=== PATIENT | male | born 1940 | race Caucasian/White ===

== ENCOUNTER 2019-04-09 13:45 | Inpatient (IN) | payer MEDICARE, OTHER ==
[2019-04-09] MEDS ORDERED: NACL 0.9% 3 ML SYG IV (14:00)
[2019-04-09] MEDS ORDERED: ONDANSETRON 4 MG INJ IV (14:00)
[2019-04-09 15:43] LABS: ADD MAN DIFF? NO
[2019-04-09 15:49] LABS: BASOPHILS % 0.7 % (0.0-2.0); EOSINOPHILS # 0.2 10^3/ul (0.0-0.5); EOSINOPHILS % 2.5 % (0.0-7.0); HEMATOCRIT 55.4 % (42.0-52.0); HEMOGLOBIN 18.4 g/dl (14.0-18.0); LYMPHOCYTES % 32.4 % (15.0-51.0); MEAN CORPUSCULAR HEMOGLOBIN 29.5 pg (29.0-33.0); MEAN CORPUSCULAR HGB CONC 33.2 g/dl (32.0-37.0); MEAN CORPUSCULAR VOLUME 88.9 fl (82.0-101.0); MEAN PLATELET VOLUME 10.5 fl (7.4-10.4); MONOCYTE # 0.7 10^3/ul (0.3-0.9); NEUTROPHIL # 3.2 10^3/ul (1.6-7.5); NEUTROPHILS % 53.2 % (39.0-77.0); PLATELET COUNT 186 10^3/UL (140-415); RED BLOOD COUNT 6.23 10^6/ul (4.70-6.10); RED CELL DISTRIBUTION WIDTH 13.3 % (11.5-14.5)
[2019-04-09] MEDS ORDERED: GLUCAGON 1 MG INJ IM (16:00)
[2019-04-09] MEDS ORDERED: GLUCOSE GEL 15 GRAM TUBE PO ×2 (16:00)
[2019-04-09] MEDS ORDERED: DEXTROSE 50% 50 ML SYRINGE IV ×2 (16:00)
[2019-04-09] MEDS ORDERED: GLUCOSE GEL 15 GRAM TUBE BUCCAL (16:00)
[2019-04-09] MEDS: SOD CHLORIDE 0.9% 1,000 ML IV (16:03)
[2019-04-09 16:07] LABS: URIC ACID 7.5 mg/dl (3.1-7.9)
[2019-04-09 16:08] LABS: INR 0.99; PROTIME 13.2 Sec (11.9-14.9)
[2019-04-09 16:09] LABS: ALANINE AMINOTRANSFERASE 28 IU/L (13-69); ALBUMIN/GLOBULIN RATIO 1.25; ALKALINE PHOSPHATASE 69 IU/L (42-121); ANION GAP 6 (5-13); ASPARTATE AMINO TRANSFERASE 33 IU/L (15-46); BLOOD UREA NITROGEN 16 mg/dl (7-20); CALCIUM 9.1 mg/dl (8.4-10.2); CARBON DIOXIDE 32 mmol/L (21-31); CHLORIDE 105 mmol/L (97-110); CREATININE 0.98 mg/dl (0.61-1.24); GLUCOSE 126 mg/dl (70-220); POTASSIUM 4.7 mmol/L (3.5-5.1); SODIUM 143 mmol/L (135-144); TOTAL PROTEIN 7.2 g/dl (6.1-8.1)
[2019-04-09 16:42] LABS: CARCINOEMBRYONIC ANTIGEN 19.7 ng/ml (0.0-5.0); FERRITIN 69.4 ng/ml (11.1-264.0)
[2019-04-09 16:59] LABS: PROSTATE SPECIFIC ANTIGEN 1.1 ng/ml (0.0-4.0)
[2019-04-09] MEDS: INSULIN ASPART [NOVOLOG] 3 ML PEN SC ×2 (17:43→20:40)
[2019-04-09] MEDS: METOPROLOL 25 MG TAB PO (20:40)
[2019-04-10] MEDS: ACCU-CHEK XX (01:54)
[2019-04-10] MEDS: SOD CHLORIDE 0.9% 1,000 ML IV ×2 (03:58→17:02)
[2019-04-10] MEDS: PANTOPRAZOLE (EC) 40 MG TAB PO (05:24)
[2019-04-10] MEDS: AMLODIPINE 5 MG TAB PO (08:08)
[2019-04-10] MEDS: METOPROLOL 25 MG TAB PO (08:08)
[2019-04-10] MEDS: ENOXAPARIN 40 MG/0.4 ML SYG SC (08:10)
[2019-04-10] MEDS: INSULIN ASPART [NOVOLOG] 3 ML PEN SC ×4 (08:12→21:00)
[2019-04-10 10:45] LABS: ADD MAN DIFF? NO
[2019-04-10 10:47] LABS: BASOPHILS % 0.4 % (0.0-2.0); EOSINOPHILS # 0.2 10^3/ul (0.0-0.5); EOSINOPHILS % 2.8 % (0.0-7.0); HEMATOCRIT 53.8 % (42.0-52.0); HEMOGLOBIN 17.5 g/dl (14.0-18.0); LYMPHOCYTES # 1.8 10^3/ul (0.8-2.9); MEAN CORPUSCULAR HEMOGLOBIN 29.1 pg (29.0-33.0); MEAN CORPUSCULAR HGB CONC 32.5 g/dl (32.0-37.0); MEAN CORPUSCULAR VOLUME 89.5 fl (82.0-101.0); MEAN PLATELET VOLUME 10.4 fl (7.4-10.4); MONOCYTE # 0.6 10^3/ul (0.3-0.9); MONOCYTES % 10.2 % (0.0-11.0); NEUTROPHIL # 3.1 10^3/ul (1.6-7.5); NEUTROPHILS % 55.2 % (39.0-77.0); PLATELET COUNT 186 10^3/UL (140-415); RED BLOOD COUNT 6.01 10^6/ul (4.70-6.10); RED CELL DISTRIBUTION WIDTH 13.2 % (11.5-14.5)
[2019-04-10 10:47] LABS: WHITE BLOOD COUNT 5.7 10^3/ul (4.8-10.8)
[2019-04-10 11:46] LABS: ALANINE AMINOTRANSFERASE 23 IU/L (13-69); ALBUMIN 3.6 g/dl (3.3-4.9); ALBUMIN/GLOBULIN RATIO 1.24; ALKALINE PHOSPHATASE 59 IU/L (42-121); ANION GAP 7 (5-13); ASPARTATE AMINO TRANSFERASE 32 IU/L (15-46); BLOOD UREA NITROGEN 17 mg/dl (7-20); CALCIUM 9.1 mg/dl (8.4-10.2); CARBON DIOXIDE 27 mmol/L (21-31); CHLORIDE 105 mmol/L (97-110); CREATININE 0.92 mg/dl (0.61-1.24); GLUCOSE 178 mg/dl (70-220); POTASSIUM 4.5 mmol/L (3.5-5.1); SODIUM 139 mmol/L (135-144); TOTAL PROTEIN 6.5 g/dl (6.1-8.1)
[2019-04-10 15:32] LABS: ALPHA FETOPROTEIN 2.76 IU/L (0.00-7.21)
[2019-04-10] MEDS: BISACODYL (EC) 5 MG TAB PO ×2 (17:01→21:04)
[2019-04-10] MEDS: PEG/ELECTROLYTES 4L BTL PO ×2 (17:03→21:06)
[2019-04-10] MEDS: METOPROLOL 50 MG TAB PO (21:03)
[2019-04-10] MEDS: HYDROCODONE/APAP (5/325) TAB PO (21:03)
[2019-04-11] MEDS: INSULIN ASPART [NOVOLOG] 3 ML PEN SC ×5 (00:39→20:21)
[2019-04-11] MEDS: ACCU-CHEK XX (01:24)
[2019-04-11 01:59] LABS: OCCULT BLOOD STOOL NEGATIVE (NEGATIVE)
[2019-04-11] MEDS: SOD CHLORIDE 0.9% 1,000 ML IV ×3 (04:00→20:26)
[2019-04-11 05:41] LABS: ADD MAN DIFF? NO
[2019-04-11 05:47] LABS: WHITE BLOOD COUNT 7.6 10^3/ul (4.8-10.8)
[2019-04-11 05:47] LABS: BASOPHILS % 0.3 % (0.0-2.0); EOSINOPHILS % 0.4 % (0.0-7.0); HEMATOCRIT 51.4 % (42.0-52.0); HEMOGLOBIN 16.8 g/dl (14.0-18.0); LYMPHOCYTES # 1.9 10^3/ul (0.8-2.9); LYMPHOCYTES % 24.6 % (15.0-51.0); MEAN CORPUSCULAR HEMOGLOBIN 29.1 pg (29.0-33.0); MEAN CORPUSCULAR HGB CONC 32.7 g/dl (32.0-37.0); MEAN CORPUSCULAR VOLUME 89.1 fl (82.0-101.0); MEAN PLATELET VOLUME 10.8 fl (7.4-10.4); MONOCYTE # 0.7 10^3/ul (0.3-0.9); MONOCYTES % 9.5 % (0.0-11.0); NEUTROPHIL # 4.9 10^3/ul (1.6-7.5); NEUTROPHILS % 64.9 % (39.0-77.0); PLATELET COUNT 179 10^3/UL (140-415); RED BLOOD COUNT 5.77 10^6/ul (4.70-6.10); RED CELL DISTRIBUTION WIDTH 13.1 % (11.5-14.5)
[2019-04-11] MEDS: PANTOPRAZOLE (EC) 40 MG TAB PO (05:59)
[2019-04-11 06:03] LABS: INR 0.96; PROTIME 12.9 Sec (11.9-14.9)
[2019-04-11 06:15] LABS: ALANINE AMINOTRANSFERASE 32 IU/L (13-69); ALKALINE PHOSPHATASE 55 IU/L (42-121); ANION GAP 9 (5-13); ASPARTATE AMINO TRANSFERASE 40 IU/L (15-46); BLOOD UREA NITROGEN 17 mg/dl (7-20); CALCIUM 8.5 mg/dl (8.4-10.2); CARBON DIOXIDE 26 mmol/L (21-31); CHLORIDE 107 mmol/L (97-110); CREATININE 0.85 mg/dl (0.61-1.24); GLUCOSE 131 mg/dl (70-220); POTASSIUM 4.1 mmol/L (3.5-5.1); SODIUM 142 mmol/L (135-144)
[2019-04-11 06:16] LABS: ALBUMIN 3.4 g/dl (3.3-4.9); ALBUMIN/GLOBULIN RATIO 1.17; BILIRUBIN,INDIRECT 0.8 mg/dl (0-1.1); BILIRUBIN,TOTAL 0.8 mg/dl (0.2-1.3); TOTAL PROTEIN 6.3 g/dl (6.1-8.1)
[2019-04-11] MEDS: AMLODIPINE 10 MG TAB PO (09:00)
[2019-04-11] MEDS: METOPROLOL 50 MG TAB PO (09:00)
[2019-04-11] MEDS: PROPOFOL 60 ML (12:26)
[2019-04-11] MEDS: LIDOCAINE 2% (SDV) 5 ML INJ (12:26)
[2019-04-11] MEDS ORDERED: ALBUTEROL 0.083% (NEB) 2.5 MG/3 ML AMP HHN (12:30)
[2019-04-11] MEDS ORDERED: ONDANSETRON 4 MG INJ IV (12:30)
[2019-04-11] MEDS ORDERED: EPHEDrine 25 MG/5 ML SYG IV (12:30)
[2019-04-11] MEDS ORDERED: LABETALOL HCL 20MG INJ IV (12:30)
[2019-04-11] MEDS ORDERED: DIPHENHYDRAMINE 50 MG INJ IV (12:30)
[2019-04-11] MEDS: LABETALOL HCL 20MG INJ (12:44)
[2019-04-11] MEDS: MEPERIDINE 25 MG INJ IV (13:11)
[2019-04-11] MEDS: hydrALAzine 20 MG INJ IV (13:11)
[2019-04-11] MEDS: HYDROCODONE/APAP (5/325) TAB PO (13:11)
[2019-04-11] MEDS: HYDROmorphONE 1 MG/ML SYG IV ×2 (14:57→20:23)
[2019-04-11] MEDS ORDERED: HYDROmorphONE 0.5 MG/0.5 ML SYG IV (15:00)
[2019-04-12] MEDS: ACCU-CHEK XX (01:36)
[2019-04-12] MEDS: PANTOPRAZOLE (EC) 40 MG TAB PO (05:25)
[2019-04-12] MEDS: INSULIN ASPART [NOVOLOG] 3 ML PEN SC ×4 (08:00→20:27)
[2019-04-12] MEDS: SOD CHLORIDE 0.9% 1,000 ML IV (08:56)
[2019-04-12] MEDS: AMLODIPINE 10 MG TAB PO (08:57)
[2019-04-12] MEDS: IOHEXOL 14.3 MG(I)/ML (ADULT) BTL PO ×2 (08:58→08:59)
[2019-04-12] MEDS: SOD CHLORIDE 0.9% 100 ML (08:59)
[2019-04-12] MEDS: IOHEXOL 300MG/ML 150 ML BTL (08:59)
[2019-04-12] MEDS: PEG/ELECTROLYTES 4L BTL PO (17:26)
[2019-04-13] MEDS: SOD CHLORIDE 0.9% 1,000 ML IV ×2 (00:38→12:30)
[2019-04-13] MEDS: INSULIN ASPART [NOVOLOG] 3 ML PEN SC ×6 (00:45→21:00)
[2019-04-13] MEDS: ACCU-CHEK XX (01:11)
[2019-04-13] MEDS: HYDROmorphONE 1 MG/ML SYG IV ×3 (02:30→11:13)
[2019-04-13] MEDS: PANTOPRAZOLE (EC) 40 MG TAB PO (05:19)
[2019-04-13] MEDS ORDERED: SUGAMMADEX SODIUM 200 MG/2 ML VIAL IV (07:00)
[2019-04-13] MEDS ORDERED: SUCCINYLCHOLINE CHLORIDE 100 MG/5 ML SYG IV ×2 (07:00→16:29)
[2019-04-13] MEDS: AMLODIPINE 10 MG TAB PO ×2 (09:00→11:09)
[2019-04-13 13:13] LABS: INR 1.01; PROTIME 13.4 Sec (11.9-14.9)
[2019-04-13 13:23] LABS: ANION GAP 9 (5-13); BLOOD UREA NITROGEN 14 mg/dl (7-20); CALCIUM 8.7 mg/dl (8.4-10.2); CARBON DIOXIDE 29 mmol/L (21-31); CHLORIDE 103 mmol/L (97-110); CREATININE 1.03 mg/dl (0.61-1.24); GLUCOSE 131 mg/dl (70-220); POTASSIUM 4.3 mmol/L (3.5-5.1); SODIUM 141 mmol/L (135-144)
[2019-04-13] MEDS ORDERED: EPINEPHRINE 4 MG in D5W 250 ML IV (14:00)
[2019-04-13] MEDS ORDERED: NORepinephrine 8MG/250 ML (PMX 250 ML IV ×2 (14:00)
[2019-04-13] MEDS ORDERED: NORepinephrine 8MG/250 ML (PMX 250 ML IVPB (14:30)
[2019-04-13] MEDS ORDERED: ROCURONIUM 50 MG INJ (16:29)
[2019-04-13] MEDS ORDERED: HYDROmorphONE 2 MG/ML SYG (16:29)
[2019-04-13] MEDS ORDERED: ETOMIDATE 20 MG INJ (16:29)
[2019-04-13] MEDS ORDERED: ONDANSETRON 4 MG INJ (16:29)
[2019-04-13] MEDS ORDERED: NITROGLYCERIN 50 MG in D5W 250 ML IV (17:00)
[2019-04-13] MEDS ORDERED: NALOXONE (0.4 MG/ML) INJ (17:45)
[2019-04-13 19:49] LABS: ANION GAP 7 (5-13); BLOOD UREA NITROGEN 14 mg/dl (7-20); CALCIUM 8.1 mg/dl (8.4-10.2); CARBON DIOXIDE 28 mmol/L (21-31); CHLORIDE 105 mmol/L (97-110); GLUCOSE 141 mg/dl (70-220); MAGNESIUM 1.9 mg/dl (1.7-2.5); POTASSIUM 4.2 mmol/L (3.5-5.1); SODIUM 140 mmol/L (135-144)
[2019-04-13 20:00] LABS: TROPONIN-I < 0.012 ng/ml (0.000-0.120)
[2019-04-13] MEDS: NITROGLYCERIN 50 MG/D5W (PMX) 250 ML IV (21:38)
[2019-04-14] MEDS: INSULIN ASPART [NOVOLOG] 3 ML PEN SC ×6 (01:00→21:00)
[2019-04-14] MEDS: SOD CHLORIDE 0.9% 1,000 ML IV (01:11)
[2019-04-14] MEDS: ACCU-CHEK XX (01:13)
[2019-04-14] MEDS: ACETAMINOPHEN 325 MG TAB PO (04:31)
[2019-04-14] MEDS: ZOLPIDEM 5 MG TAB PO (04:31)
[2019-04-14 04:56] LABS: ADD MAN DIFF? NO
[2019-04-14 05:00] LABS: BASOPHILS % 0.2 % (0.0-2.0); EOSINOPHILS # 0.1 10^3/ul (0.0-0.5); EOSINOPHILS % 1.4 % (0.0-7.0); HEMATOCRIT 46.7 % (42.0-52.0); HEMOGLOBIN 15.2 g/dl (14.0-18.0); LYMPHOCYTES # 1.3 10^3/ul (0.8-2.9); LYMPHOCYTES % 15.5 % (15.0-51.0); MEAN CORPUSCULAR HEMOGLOBIN 29.9 pg (29.0-33.0); MEAN CORPUSCULAR HGB CONC 32.5 g/dl (32.0-37.0); MEAN CORPUSCULAR VOLUME 91.9 fl (82.0-101.0); MONOCYTE # 0.8 10^3/ul (0.3-0.9); MONOCYTES % 10.4 % (0.0-11.0); NEUTROPHIL # 5.8 10^3/ul (1.6-7.5); NEUTROPHILS % 72.1 % (39.0-77.0); PLATELET COUNT 181 10^3/UL (140-415); RED BLOOD COUNT 5.08 10^6/ul (4.70-6.10); RED CELL DISTRIBUTION WIDTH 13.4 % (11.5-14.5)
[2019-04-14 05:23] LABS: MAGNESIUM 1.9 mg/dl (1.7-2.5)
[2019-04-14 05:23] LABS: PHOSPHORUS 4.3 mg/dl (2.5-4.9)
[2019-04-14 05:25] LABS: ANION GAP 6 (5-13); BLOOD UREA NITROGEN 13 mg/dl (7-20); CALCIUM 8.6 mg/dl (8.4-10.2); CARBON DIOXIDE 29 mmol/L (21-31); CHLORIDE 103 mmol/L (97-110); GLUCOSE 103 mg/dl (70-220); SODIUM 138 mmol/L (135-144)
[2019-04-14] MEDS: PANTOPRAZOLE (EC) 40 MG TAB PO (06:00)
[2019-04-14] MEDS: AMLODIPINE 10 MG TAB PO (09:20)
[2019-04-15] MEDS: ACCU-CHEK XX (02:00)
[2019-04-15] MEDS: INSULIN ASPART [NOVOLOG] 3 ML PEN SC ×6 (02:00→20:27)
[2019-04-15 06:00] LABS: ADD MAN DIFF? NO
[2019-04-15] MEDS: PANTOPRAZOLE (EC) 40 MG TAB PO (06:03)
[2019-04-15 06:06] LABS: BASOPHILS % 0.1 % (0.0-2.0); EOSINOPHILS # 0.1 10^3/ul (0.0-0.5); EOSINOPHILS % 1.7 % (0.0-7.0); HEMATOCRIT 48.1 % (42.0-52.0); HEMOGLOBIN 15.5 g/dl (14.0-18.0); LYMPHOCYTES # 1.5 10^3/ul (0.8-2.9); LYMPHOCYTES % 21.7 % (15.0-51.0); MEAN CORPUSCULAR HEMOGLOBIN 29.5 pg (29.0-33.0); MEAN CORPUSCULAR HGB CONC 32.2 g/dl (32.0-37.0); MEAN CORPUSCULAR VOLUME 91.4 fl (82.0-101.0); MEAN PLATELET VOLUME 10.8 fl (7.4-10.4); MONOCYTE # 0.7 10^3/ul (0.3-0.9); MONOCYTES % 9.4 % (0.0-11.0); NEUTROPHIL # 4.7 10^3/ul (1.6-7.5); NEUTROPHILS % 66.8 % (39.0-77.0); PLATELET COUNT 179 10^3/UL (140-415); RED BLOOD COUNT 5.26 10^6/ul (4.70-6.10); RED CELL DISTRIBUTION WIDTH 13.2 % (11.5-14.5)
[2019-04-15 06:26] LABS: PHOSPHORUS 3.4 mg/dl (2.5-4.9)
[2019-04-15 06:33] LABS: ANION GAP 8 (5-13); BLOOD UREA NITROGEN 16 mg/dl (7-20); CALCIUM 8.5 mg/dl (8.4-10.2); CARBON DIOXIDE 30 mmol/L (21-31); CHLORIDE 102 mmol/L (97-110); CREATININE 0.87 mg/dl (0.61-1.24); GLUCOSE 112 mg/dl (70-220); SODIUM 140 mmol/L (135-144)
[2019-04-15] MEDS: AMLODIPINE 10 MG TAB PO (08:35)
[2019-04-15] MEDS ORDERED: AMLODIPINE 5 MG TAB PO (13:30)
[2019-04-16] MEDS: INSULIN ASPART [NOVOLOG] 3 ML PEN SC ×6 (01:00→20:55)
[2019-04-16] MEDS: ACCU-CHEK XX (01:07)
[2019-04-16] MEDS: PANTOPRAZOLE (EC) 40 MG TAB PO (05:27)
[2019-04-16] MEDS: AMLODIPINE 10 MG TAB PO ×2 (09:00→17:38)
[2019-04-16] MEDS: SOD CHLORIDE 0.9% 1,000 ML IV (15:52)
[2019-04-16 19:20] LABS: TROPONIN-I < 0.012 ng/ml (0.000-0.120)
[2019-04-17] MEDS: SOD CHLORIDE 0.9% 1,000 ML IV ×2 (00:11→12:30)
[2019-04-17] MEDS: INSULIN ASPART [NOVOLOG] 3 ML PEN SC ×6 (01:00→20:32)
[2019-04-17] MEDS: ACCU-CHEK XX (02:00)
[2019-04-17] MEDS: PANTOPRAZOLE (EC) 40 MG TAB PO (05:26)
[2019-04-17 05:38] LABS: ADD MAN DIFF? NO
[2019-04-17 05:56] LABS: BASOPHILS % 0.5 % (0.0-2.0); EOSINOPHILS # 0.2 10^3/ul (0.0-0.5); EOSINOPHILS % 2.9 % (0.0-7.0); HEMATOCRIT 48.9 % (42.0-52.0); HEMOGLOBIN 16.2 g/dl (14.0-18.0); LYMPHOCYTES % 26.3 % (15.0-51.0); MEAN CORPUSCULAR HEMOGLOBIN 29.6 pg (29.0-33.0); MEAN CORPUSCULAR HGB CONC 33.1 g/dl (32.0-37.0); MEAN CORPUSCULAR VOLUME 89.2 fl (82.0-101.0); MEAN PLATELET VOLUME 10.9 fl (7.4-10.4); MONOCYTE # 0.9 10^3/ul (0.3-0.9); MONOCYTES % 11.7 % (0.0-11.0); NEUTROPHIL # 4.5 10^3/ul (1.6-7.5); NEUTROPHILS % 58.3 % (39.0-77.0); PLATELET COUNT 201 10^3/UL (140-415); RED BLOOD COUNT 5.48 10^6/ul (4.70-6.10); RED CELL DISTRIBUTION WIDTH 13.2 % (11.5-14.5)
[2019-04-17 05:56] LABS: WHITE BLOOD COUNT 7.7 10^3/ul (4.8-10.8)
[2019-04-17 06:19] LABS: PHOSPHORUS 3.7 mg/dl (2.5-4.9)
[2019-04-17 06:20] LABS: ALANINE AMINOTRANSFERASE 32 IU/L (13-69); ALBUMIN 3.6 g/dl (3.3-4.9); ALBUMIN/GLOBULIN RATIO 1.16; ALKALINE PHOSPHATASE 66 IU/L (42-121); ANION GAP 9 (5-13); ASPARTATE AMINO TRANSFERASE 31 IU/L (15-46); BILIRUBIN,INDIRECT 1.2 mg/dl (0-1.1); BILIRUBIN,TOTAL 1.2 mg/dl (0.2-1.3); BLOOD UREA NITROGEN 14 mg/dl (7-20); CALCIUM 8.8 mg/dl (8.4-10.2); CARBON DIOXIDE 29 mmol/L (21-31); CHLORIDE 103 mmol/L (97-110); CREATININE 0.82 mg/dl (0.61-1.24); GLUCOSE 90 mg/dl (70-220); POTASSIUM 3.9 mmol/L (3.5-5.1); SODIUM 141 mmol/L (135-144); TOTAL PROTEIN 6.7 g/dl (6.1-8.1)
[2019-04-17] MEDS ORDERED: DESFLURANE 15 MIN (07:00)
[2019-04-17] MEDS ORDERED: metroNIDAZOLE 500 MG/100 ML NS IVPB (07:00)
[2019-04-17] MEDS ORDERED: CEFAZOLIN 1 GM INJ (07:00)
[2019-04-17] MEDS: AMLODIPINE 10 MG TAB PO (08:25)
[2019-04-17] MEDS ORDERED: FENTAnyl 50 MCG/ML VIAL ×2 (10:05→16:18)
[2019-04-17] MEDS ORDERED: ETOMIDATE 20 MG INJ (10:12)
[2019-04-17] MEDS ORDERED: SUCCINYLCHOLINE CHLORIDE 100 MG/5 ML SYG IV (10:51)
[2019-04-17] MEDS ORDERED: LIDOCAINE 100 MG SYRINGE (10:51)
[2019-04-17] MEDS ORDERED: PROPOFOL 20 ML (10:51)
[2019-04-17] MEDS ORDERED: ROCURONIUM 50 MG INJ (10:51)
[2019-04-17] MEDS ORDERED: hydrALAzine 20 MG INJ ×2 (11:23→15:38)
[2019-04-17] MEDS: BUPIVACAINE 0.5%/EPI (SDV) 30 ML INJ (12:03)
[2019-04-17] MEDS: LIDOCAINE 1% (MPF) 30 ML INJ (12:04)
[2019-04-17] MEDS ORDERED: ROPIVACAINE 0.5 % 30 ML VIAL (15:04)
[2019-04-17] MEDS ORDERED: ROPIVACAINE 0.2% 20 ML VIAL (15:26)
[2019-04-17] MEDS ORDERED: HYDROCODONE/APAP (5/325) TAB PO (15:30)
[2019-04-17] MEDS ORDERED: SUGAMMADEX SODIUM 200 MG/2 ML VIAL IV ×2 (15:31→15:40)
[2019-04-17] MEDS ORDERED: nitroGLYCerin 50 MG INJ (15:34)
[2019-04-17] MEDS ORDERED: HYDROmorphONE 1 MG/5 ML IV SYRINGE IV ×2 (15:59→16:30)
[2019-04-17] MEDS: HYDROmorphONE 1 MG/5 ML IV SYRINGE IV ×2 (16:21→16:28)
[2019-04-17] MEDS ORDERED: FENTAnyl 50 MCG/ML VIAL IV (16:30)
[2019-04-17] MEDS ORDERED: LABETALOL HCL 20MG INJ IV (16:30)
[2019-04-17] MEDS ORDERED: ALBUTEROL 0.083% (NEB) 2.5 MG/3 ML AMP HHN (16:30)
[2019-04-17] MEDS ORDERED: DIPHENHYDRAMINE 50 MG INJ IV (16:30)
[2019-04-17] MEDS ORDERED: METOCLOPRAMIDE 10 MG INJ IV (16:30)
[2019-04-17] MEDS ORDERED: LEVALBUTEROL (NEB) 0.63 MG/3 ML AMP HHN (16:30)
[2019-04-17] MEDS: FENTAnyl 50 MCG/ML VIAL IV ×3 (16:33→18:03)
[2019-04-17] MEDS: ONDANSETRON 4 MG INJ IV (16:36)
[2019-04-17] MEDS: MEPERIDINE 25 MG INJ IV (16:36)
[2019-04-17] MEDS ORDERED: DILTIAZEM 25 MG INJ IV (17:00)
[2019-04-17] MEDS: hydrALAzine 20 MG INJ IV (18:21)
[2019-04-17] MEDS: morphine 2 MG INJ IV (20:28)
[2019-04-18] MEDS: morphine 2 MG INJ IV ×6 (00:29→21:52)
[2019-04-18] MEDS: INSULIN ASPART [NOVOLOG] 3 ML PEN SC ×6 (01:00→21:00)
[2019-04-18] MEDS: SOD CHLORIDE 0.9% 1,000 ML IV ×2 (01:00→07:31)
[2019-04-18] MEDS: ACCU-CHEK XX (02:00)
[2019-04-18] MEDS: PANTOPRAZOLE (EC) 40 MG TAB PO (05:28)
[2019-04-18 06:11] LABS: ADD MAN DIFF? NO
[2019-04-18 06:16] LABS: WHITE BLOOD COUNT 11.3 10^3/ul (4.8-10.8)
[2019-04-18 06:16] LABS: BASOPHILS % 0.3 % (0.0-2.0); HEMATOCRIT 50.6 % (42.0-52.0); HEMOGLOBIN 16.3 g/dl (14.0-18.0); LYMPHOCYTES % 9.1 % (15.0-51.0); MEAN CORPUSCULAR HEMOGLOBIN 29.4 pg (29.0-33.0); MEAN CORPUSCULAR HGB CONC 32.2 g/dl (32.0-37.0); MEAN CORPUSCULAR VOLUME 91.3 fl (82.0-101.0); MEAN PLATELET VOLUME 10.7 fl (7.4-10.4); MONOCYTES % 8.6 % (0.0-11.0); NEUTROPHIL # 9.2 10^3/ul (1.6-7.5); NEUTROPHILS % 81.5 % (39.0-77.0); PLATELET COUNT 209 10^3/UL (140-415); RED BLOOD COUNT 5.54 10^6/ul (4.70-6.10); RED CELL DISTRIBUTION WIDTH 13.5 % (11.5-14.5)
[2019-04-18 06:47] LABS: ALANINE AMINOTRANSFERASE 27 IU/L (13-69); ALBUMIN 3.5 g/dl (3.3-4.9); ALBUMIN/GLOBULIN RATIO 1.16; ALKALINE PHOSPHATASE 60 IU/L (42-121); ANION GAP 11 (5-13); ASPARTATE AMINO TRANSFERASE 29 IU/L (15-46); BILIRUBIN,INDIRECT 1.1 mg/dl (0-1.1); BILIRUBIN,TOTAL 1.1 mg/dl (0.2-1.3); BLOOD UREA NITROGEN 12 mg/dl (7-20); CALCIUM 8.6 mg/dl (8.4-10.2); CARBON DIOXIDE 24 mmol/L (21-31); CHLORIDE 106 mmol/L (97-110); CREATININE 0.82 mg/dl (0.61-1.24); GLUCOSE 134 mg/dl (70-220); POTASSIUM 4.2 mmol/L (3.5-5.1); SODIUM 141 mmol/L (135-144); TOTAL PROTEIN 6.5 g/dl (6.1-8.1)
[2019-04-18] MEDS: AMLODIPINE 10 MG TAB PO (08:24)
[2019-04-18] MEDS: HYDROCODONE/APAP (5/325) TAB PO (20:17)
[2019-04-18] MEDS: ONDANSETRON 4 MG INJ IV (21:52)
[2019-04-19] MEDS: ENALAPRILAT 1.25 MG INJ IV ×2 (00:23→07:31)
[2019-04-19] MEDS: INSULIN ASPART [NOVOLOG] 3 ML PEN SC ×6 (00:34→20:41)
[2019-04-19] MEDS: ACCU-CHEK XX (01:36)
[2019-04-19] MEDS: SOD CHLORIDE 0.9% 1,000 ML IV ×2 (04:26→08:46)
[2019-04-19 06:08] LABS: ADD MAN DIFF? NO
[2019-04-19 06:11] LABS: BASOPHILS % 0.2 % (0.0-2.0); EOSINOPHILS % 0.1 % (0.0-7.0); HEMATOCRIT 51.9 % (42.0-52.0); HEMOGLOBIN 16.8 g/dl (14.0-18.0); LYMPHOCYTES # 1.1 10^3/ul (0.8-2.9); LYMPHOCYTES % 9.8 % (15.0-51.0); MEAN CORPUSCULAR HEMOGLOBIN 29.2 pg (29.0-33.0); MEAN CORPUSCULAR HGB CONC 32.4 g/dl (32.0-37.0); MEAN CORPUSCULAR VOLUME 90.3 fl (82.0-101.0); MEAN PLATELET VOLUME 11.1 fl (7.4-10.4); MONOCYTE # 1.3 10^3/ul (0.3-0.9); MONOCYTES % 11.9 % (0.0-11.0); NEUTROPHIL # 8.7 10^3/ul (1.6-7.5); NEUTROPHILS % 77.7 % (39.0-77.0); PLATELET COUNT 187 10^3/UL (140-415); RED BLOOD COUNT 5.75 10^6/ul (4.70-6.10); RED CELL DISTRIBUTION WIDTH 13.7 % (11.5-14.5)
[2019-04-19 06:11] LABS: WHITE BLOOD COUNT 11.2 10^3/ul (4.8-10.8)
[2019-04-19 06:33] LABS: PHOSPHORUS 2.6 mg/dl (2.5-4.9)
[2019-04-19 06:35] LABS: ALANINE AMINOTRANSFERASE 24 IU/L (13-69); ALBUMIN 3.2 g/dl (3.3-4.9); ALBUMIN/GLOBULIN RATIO 1.23; ALKALINE PHOSPHATASE 54 IU/L (42-121); ANION GAP 8 (5-13); ASPARTATE AMINO TRANSFERASE 22 IU/L (15-46); BILIRUBIN,INDIRECT 1.1 mg/dl (0-1.1); BILIRUBIN,TOTAL 1.1 mg/dl (0.2-1.3); BLOOD UREA NITROGEN 17 mg/dl (7-20); CARBON DIOXIDE 28 mmol/L (21-31); CHLORIDE 104 mmol/L (97-110); CREATININE 0.72 mg/dl (0.61-1.24); GLUCOSE 138 mg/dl (70-220); POTASSIUM 4.3 mmol/L (3.5-5.1); SODIUM 140 mmol/L (135-144); TOTAL PROTEIN 5.8 g/dl (6.1-8.1)
[2019-04-19] MEDS: PANTOPRAZOLE (EC) 40 MG TAB PO (06:52)
[2019-04-19] MEDS: HYDROCODONE/APAP (5/325) TAB PO ×3 (07:30→21:45)
[2019-04-19] MEDS: DOCUSATE SODIUM 100 MG CAP PO (08:46)
[2019-04-19] MEDS: ONDANSETRON 4 MG INJ IV ×2 (08:46→14:27)
[2019-04-19] MEDS: morphine 2 MG INJ IV ×2 (08:46→22:47)
[2019-04-19] MEDS: AMLODIPINE 10 MG TAB PO (08:47)
[2019-04-19] MEDS: ENOXAPARIN 40 MG/0.4 ML SYG SC (09:11)
[2019-04-20] MEDS: INSULIN ASPART [NOVOLOG] 3 ML PEN SC ×6 (00:19→20:32)
[2019-04-20] MEDS: MAGNESIUM HYDROXIDE 30ML CUP PO (00:22)
[2019-04-20] MEDS: ACCU-CHEK XX (02:00)
[2019-04-20] MEDS: HYDROCODONE/APAP (5/325) TAB PO ×4 (04:02→21:42)
[2019-04-20] MEDS: PANTOPRAZOLE (EC) 40 MG TAB PO (05:00)
[2019-04-20] MEDS: DOCUSATE SODIUM 100 MG CAP PO (09:40)
[2019-04-20] MEDS: ONDANSETRON 4 MG INJ IV (09:41)
[2019-04-20] MEDS: AMLODIPINE 10 MG TAB PO (09:41)
[2019-04-20] MEDS: ENOXAPARIN 40 MG/0.4 ML SYG SC (09:57)
[2019-04-21] MEDS: INSULIN ASPART [NOVOLOG] 3 ML PEN SC ×5 (01:00→16:58)
[2019-04-21] MEDS: ACCU-CHEK XX (01:26)
[2019-04-21 05:33] LABS: ADD MAN DIFF? NO
[2019-04-21 05:45] LABS: BASOPHILS % 0.3 % (0.0-2.0); EOSINOPHILS # 0.2 10^3/ul (0.0-0.5); EOSINOPHILS % 1.8 % (0.0-7.0); HEMATOCRIT 51.1 % (42.0-52.0); HEMOGLOBIN 16.9 g/dl (14.0-18.0); LYMPHOCYTES # 1.8 10^3/ul (0.8-2.9); LYMPHOCYTES % 18.8 % (15.0-51.0); MEAN CORPUSCULAR HEMOGLOBIN 29.8 pg (29.0-33.0); MEAN CORPUSCULAR HGB CONC 33.1 g/dl (32.0-37.0); MEAN PLATELET VOLUME 10.7 fl (7.4-10.4); MONOCYTE # 0.9 10^3/ul (0.3-0.9); MONOCYTES % 9.4 % (0.0-11.0); NEUTROPHIL # 6.5 10^3/ul (1.6-7.5); NEUTROPHILS % 69.4 % (39.0-77.0); PLATELET COUNT 270 10^3/UL (140-415); RED BLOOD COUNT 5.68 10^6/ul (4.70-6.10); RED CELL DISTRIBUTION WIDTH 13.5 % (11.5-14.5)
[2019-04-21 05:45] LABS: WHITE BLOOD COUNT 9.4 10^3/ul (4.8-10.8)
[2019-04-21] MEDS: PANTOPRAZOLE (EC) 40 MG TAB PO (06:03)
[2019-04-21 06:11] LABS: PHOSPHORUS 3.3 mg/dl (2.5-4.9)
[2019-04-21 06:11] LABS: MAGNESIUM 2.2 mg/dl (1.7-2.5)
[2019-04-21 06:19] LABS: ANION GAP 7 (5-13); BLOOD UREA NITROGEN 26 mg/dl (7-20); CALCIUM 8.8 mg/dl (8.4-10.2); CARBON DIOXIDE 33 mmol/L (21-31); CHLORIDE 100 mmol/L (97-110); CREATININE 0.82 mg/dl (0.61-1.24); GLUCOSE 134 mg/dl (70-220); SODIUM 140 mmol/L (135-144)
[2019-04-21] MEDS: AMLODIPINE 10 MG TAB PO (08:25)
[2019-04-21] MEDS: ENOXAPARIN 40 MG/0.4 ML SYG SC (08:26)
[2019-04-21] MEDS: HYDROCODONE/APAP (5/325) TAB PO (10:28)
[2019-04-21] MEDS: METOCLOPRAMIDE 10 MG INJ IV (16:57)
[2019-04-21] MEDS: ONDANSETRON 4 MG INJ IV (16:58)
[2019-04-21] MEDS: morphine 2 MG INJ IV (17:36)
[2019-04-21] MEDS: Insulin NOVOLOG SS MODERATE Algorithm (SS with meals and bedtime) SC (20:45)
[2019-04-21] MEDS ORDERED: INSULIN ASPART [NOVOLOG] 3 ML PEN SC (21:00)
[2019-04-22] MEDS: ACCU-CHEK XX (02:00)
[2019-04-22] MEDS: METOCLOPRAMIDE 10 MG INJ IV ×3 (05:24→17:25)
[2019-04-22] MEDS: PANTOPRAZOLE (EC) 40 MG TAB PO (05:24)
[2019-04-22] MEDS: HYDROCODONE/APAP (5/325) TAB PO ×2 (05:34→17:25)
[2019-04-22] MEDS: Insulin NOVOLOG SS MODERATE Algorithm (SS with meals and bedtime) SC ×4 (07:43→20:18)
[2019-04-22] MEDS: AMLODIPINE 10 MG TAB PO (09:00)
[2019-04-22] MEDS: ENOXAPARIN 40 MG/0.4 ML SYG SC (09:26)
[2019-04-23] MEDS: ACCU-CHEK XX (01:56)
[2019-04-23 06:01] LABS: ADD MAN DIFF? NO
[2019-04-23 06:17] LABS: BASOPHILS % 0.4 % (0.0-2.0); EOSINOPHILS # 0.2 10^3/ul (0.0-0.5); EOSINOPHILS % 2.2 % (0.0-7.0); HEMATOCRIT 48.5 % (42.0-52.0); HEMOGLOBIN 15.8 g/dl (14.0-18.0); LYMPHOCYTES % 11.8 % (15.0-51.0); MEAN CORPUSCULAR HEMOGLOBIN 29.6 pg (29.0-33.0); MEAN CORPUSCULAR HGB CONC 32.6 g/dl (32.0-37.0); MEAN CORPUSCULAR VOLUME 90.8 fl (82.0-101.0); MEAN PLATELET VOLUME 10.9 fl (7.4-10.4); MONOCYTE # 1.1 10^3/ul (0.3-0.9); MONOCYTES % 12.6 % (0.0-11.0); NEUTROPHIL # 6.2 10^3/ul (1.6-7.5); NEUTROPHILS % 72.8 % (39.0-77.0); PLATELET COUNT 197 10^3/UL (140-415); RED BLOOD COUNT 5.34 10^6/ul (4.70-6.10); RED CELL DISTRIBUTION WIDTH 13.1 % (11.5-14.5)
[2019-04-23 06:17] LABS: WHITE BLOOD COUNT 8.5 10^3/ul (4.8-10.8)
[2019-04-23] MEDS: PANTOPRAZOLE (EC) 40 MG TAB PO (06:29)
[2019-04-23] MEDS: METOCLOPRAMIDE 10 MG INJ IV ×3 (06:29→18:09)
[2019-04-23 06:34] LABS: PHOSPHORUS 3.7 mg/dl (2.5-4.9)
[2019-04-23 06:34] LABS: MAGNESIUM 2.1 mg/dl (1.7-2.5)
[2019-04-23 07:52] LABS: ANION GAP 5 (5-13); BLOOD UREA NITROGEN 21 mg/dl (7-20); CALCIUM 8.3 mg/dl (8.4-10.2); CARBON DIOXIDE 29 mmol/L (21-31); CHLORIDE 102 mmol/L (97-110); CREATININE 0.82 mg/dl (0.61-1.24); GLUCOSE 133 mg/dl (70-220); POTASSIUM 4.2 mmol/L (3.5-5.1); SODIUM 136 mmol/L (135-144)
[2019-04-23] MEDS: morphine 2 MG INJ IV (08:10)
[2019-04-23] MEDS: AMLODIPINE 10 MG TAB PO (08:17)
[2019-04-23] MEDS: Insulin NOVOLOG SS MODERATE Algorithm (SS with meals and bedtime) SC ×3 (08:41→17:44)
[2019-04-23] MEDS: ENOXAPARIN 40 MG/0.4 ML SYG SC (08:41)
[2019-04-23] MEDS: HYDROCODONE/APAP (5/325) TAB PO ×2 (11:41→18:23)
== END 2019-04-23 19:57 | disposition home health service (06) | DRG 330 ==
LOC: PP2 13:45 → ICU 04-13 19:04 → 6WM 04-14 22:03
PROC: 0DTN4ZZ Resection of Sigmoid Colon, Percutaneous Endoscopic Approach (ICD-10-PCS; principal; 2019-04-11 11:30)
PROC: 0DBM8ZX Excision of Descending Colon, Via Natural or Artificial Opening Endoscopic, Diagnostic (ICD-10-PCS; 2019-04-11 11:30)
PROC: 0DJD8ZZ Inspection of Lower Intestinal Tract, Via Natural or Artificial Opening Endoscopic (ICD-10-PCS; 2019-04-11 11:30)
DX: C18.8 Malignant neoplasm of overlapping sites of colon (principal); C78.7 Secondary malignant neoplasm of liver and intrahepatic bile duct; C77.2 Secondary and unspecified malignant neoplasm of intra-abdominal lymph nodes; K56.699 Other intestinal obstruction unspecified as to partial versus complete obstruction; R00.1 Bradycardia, unspecified; I95.9 Hypotension, unspecified; E66.01 Morbid (severe) obesity due to excess calories; I10 Essential (primary) hypertension; I25.10 Atherosclerotic heart disease of native coronary artery without angina pectoris; E78.5 Hyperlipidemia, unspecified; D12.5 Benign neoplasm of sigmoid colon; I48.2 Chronic atrial fibrillation; I71.2 Thoracic aortic aneurysm, without rupture; K76.0 Fatty (change of) liver, not elsewhere classified; Z68.37 Body mass index [BMI] 37.0-37.9, adult; Z53.09 Procedure and treatment not carried out because of other contraindication; Z79.84 Long term (current) use of oral hypoglycemic drugs; Z86.73 Personal history of transient ischemic attack (TIA), and cerebral infarction without residual deficits
CPT/HCPCS: 71045; 71260; 74177; 74182; 76700; 80048; 80053; 82105; 82270; 82378; 82728; 82962; 83036; 83735; 84100; 84153; 84154; 84443; 84484; 84560; 85025; 85610; 85730; 86301; 86850; 86900; 86901; 87081; 87086; 88305; 88307; 93005; 93306; 97116; 97161; 97530